=== PATIENT | female | born 1995 | race African-American/Black ===

== ENCOUNTER 2017-07-29 16:50 | Emergency (ER) | payer OTHER ==
[~2017-07-29] VITALS: Ht 170.2 cm; Wt 59.4 kg
[~2017-07-29 16:50] MED LIST: ALLERGY CREAM30 G1 TP; BACTRIM DS TAB1 EACH PO; BACTROBAN CREAM30 G1 TOP; IBUPROFEN 800800 MG PO
[2017-07-29 18:47] LABS: ABSOLUTE NEUTROPHILS 5.7 thou/uL (1.4-8.2); BASOPHILS 0.9 % (0.0-2.0); EOSINOPHILS 1.7 % (0.0-3.0); HEMATOCRIT 31.5 % (37.0-47.0); HEMOGLOBIN 10.8 gm/dL (12.0-15.0); LYMPHOCYTES 29.6 % (24.0-44.0); MANUAL DIFF NO; MCH 27.6 pg (26.0-34.0); MCHC 34.2 g/dL (28.0-37.0); MCV 80.6 fL (80.0-100.0); MONOCYTES 8.1 % (1.0-8.0); PLATELET COUNT 250 thou/uL (150-400); POLYS 59.7 % (36.0-66.0); RBC 3.91 mil/uL (4.20-5.00); RDW 14.9 % (10.5-14.5); WBC 9.5 thou/uL (4.0-11.0)
[2017-07-29 18:55] LABS: CALCIUM 8.8 mg/dL (8.5-10.1); CREATININE 1.2 mg/dL (0.6-1.0); POTASSIUM 3.5 mmol/L (3.5-5.1)
[2017-07-29] MEDS ORDERED: MOBIC15 MG PO (19:09)
[2017-07-29 19:30] VITALS: BP 120/64
== END 2017-07-29 19:31 | disposition home or self-care (01) ==
LOC: ER 16:50
PROVIDERS: Physician Assistant
DX: M79.1 Myalgia (principal); F10.99 Alcohol use, unspecified with unspecified alcohol-induced disorder

== ENCOUNTER 2021-05-28 15:13 | Emergency (ER) | payer OTHER ==
[~2021-05-28] VITALS: Ht 170.2 cm; Wt 68.0 kg
[~2021-05-28 15:13] MED LIST changes: +MOBIC15 MG PO
[2021-05-28 16:44] VITALS: BP 105/64
[2021-05-28] MEDS ORDERED: PREDNISONE 20 M20 MG PO ×2 (17:31→17:35)
== END 2021-05-28 17:30 | disposition home or self-care (01) ==
LOC: ER 15:13
DX: L23.7 Allergic contact dermatitis due to plants, except food (principal); Z79.1 Long term (current) use of non-steroidal anti-inflammatories (NSAID)